=== PATIENT | female | born 1975 | race Hispanic/Latino ===

== ENCOUNTER 2017-03-06 15:13 | Outpatient (CLI) | payer BC ==
--- NOTE | 2017-03-06 17:09 | MMO ---
BILATERAL SCREENING MAMMOGRAMS: DATE: 03/06/2017 COMPARISON: Prior exam of 2015. This patient's mammogram was interpreted with the assistance of computer-aided detection. FINDINGS: Scattered fibroglandular densities. No mass or distortion. No suspicious calcification. No evidenc e of interval change. IMPRESSION: BI-RADS 1: Negative. Recommend one year follow-up. POS: JANA
== END 2017-03-06 15:14 | disposition home or self-care (01) ==
LOC: MAMMO 15:13
PROVIDERS: ATTEND Family Medicine
DX: Z12.31 Encounter for screening mammogram for malignant neoplasm of breast (principal)
CPT/HCPCS: 77067; G0202

== ENCOUNTER 2017-07-13 08:59 | Outpatient (CLI) | payer BC ==
--- NOTE | 2017-07-13 11:13 | ULT ---
ABDOMINAL ULTRASOUND: Date: 07/13/17 HISTORY: Elevated transaminase. COMPARISON: None. TECHNIQUE: Utilizing a multihertz transducer, sonographic imaging of the abdomen is performed in the longitudina l and transverse plane. FINDINGS: Pancreas is obscured by bowel gas. Hepatic parenchyma has increased echogenicity which may be due to hepatic steatosis or hepatocellular disease. Limited evaluation for hepatic masses and intrahepatic d ilatation. Right hepatic lobe measures 17.21 cm. Main portal vein is patent. Appropriate direction of flow. Within the lumen of the gallbladder. There is echogenic material with shadowing suggesting gallbladde r completely filled with stones. Sludge may also be present. Gallbladder wall is not thickened. No si gnificant pericholecystic fluid. District [employer] does not comment on the presence or absence of Patel's sign. Common bile duct diameter is 0.6 cm. Right kidney has a normal cortical echotexture. No hydronephrosis. Right kidney measures 4.5 x 5.3 x 11.7 cm. IMPRESSION: 1. Increased echogenicity of liver. Hepatomegaly. Correlate for hepatic steatosis versus hepatocellu lar disease. If there is concern for hepatic masses, consider dedicated liver mass protocol CT. 2. Sonographic evidence of cholelithiasis without obvious evidence of cholecystitis. There does appe ar to be a significant amount of gallstones present. If there is concern, consider HIDA scan. 3. Common bile duct diameter 0.6 cm, which is near the upper limits of normal. If there is concern f or choledocholithiasis, consider ERCP or MRCP. Note, if MRCP is performed, the liver can also be asse ssed with an abdomen MRI. POS: JANA
== END 2017-07-13 09:00 | disposition home or self-care (01) ==
LOC: SCSULT 08:59
PROVIDERS: ATTEND Family Medicine
DX: R74.0 Nonspecific elevation of levels of transaminase and lactic acid dehydrogenase [LDH] (principal); R16.0 Hepatomegaly, not elsewhere classified; R93.3 Abnormal findings on diagnostic imaging of other parts of digestive tract; K80.20 Calculus of gallbladder without cholecystitis without obstruction
CPT/HCPCS: 76700; 76705

== ENCOUNTER 2017-07-19 11:45 | Outpatient (CLI) | payer BC ==
--- NOTE | 2017-07-21 09:02 | EKG ---
Test Reason : Blood Pressure : / mmHG Vent. Rate : 067 BPM Atrial Rate : 067 BPM P-R Int : 172 ms QRS Dur : 090 ms QT Int : 410 ms P-R-T Axes : 054 054 046 degrees QTc Int : 433 ms Normal sinus rhythm Nonspecific T wave abnormality Abnormal ECG No previous ECGs available Confirmed by VAMSI PADILLA ([id number]) on 07/21/2017 9:01:33 AM Referred By: JOSETTE Confirmed By:VAMSI PADILLA
== END 2017-07-19 11:46 | disposition home or self-care (01) ==
LOC: LABBT 11:45
PROVIDERS: ATTEND Specialist
DX: Z01.812 Encounter for preprocedural laboratory examination (principal); K80.12 Calculus of gallbladder with acute and chronic cholecystitis without obstruction
CPT/HCPCS: 93005; 93010

== ENCOUNTER 2017-07-24 07:09 | Day surgery (SDC) | payer BC ==
--- NOTE | 2017-07-20 00:10 | HP ---
HISTORY OF PRESENT ILLNESS: Ms. Camelia López is a 41-year-old female referred by Dr. Red Staton fo r gallstones. Abdominal ultrasound 07/13/2017 reveals multiple gallstones, fatty liver, normal bile duct caliber 6 mm. On 07/01/2017, CBC, comprehensive metabolic profile, lipase, vitamin levels at [facility] are normal. Screening colonoscopy on 07/12/2016, Dr. Dolan. Normal colonoscopy w ith diminutive polyp, otherwise normal. 0, para 0. ALLERGIES: None. TOBACCO: None. ALCOHOL: None. PAST SURGICAL HISTORY: Total abdominal hysterectomy, salpingo-oophorectomy for endometriosis. PAST MEDICAL HISTORY: Hypertension, history of endometriosis, depression. REVIEW OF SYSTEMS: Ten point noncontributory. PHYSICAL EXAMINATION: VITAL SIGNS: 137/89, 78, 99 degrees, 203 pounds, 64 inches. HEENT: Unremarkable. LUNGS: Clear to auscultation. CARDIAC: Regular rate and rhythm. ABDOMEN: Soft, mild tenderness in the epigastrium and right upper quadrant. No guarding, rebound. EXTREMITIES: Unremarkable. MEDICATIONS: Please note, sertraline 100 mg a day. Triple antibiotic therapy for H. pylori positive completing therapy, lisinopril/hydrochlorothiazide 10/12.5 mg a day. ASSESSMENT AND PLAN: 1. Cholecystitis, cholelithiasis, normal bile duct caliber. Recommend laparoscopic video cholecyste ctomy. Risk of infection, bleeding, visceral and biliary injury discussed. She consents. 2. H. pylori, undergoing treatment. 3. History of hysterectomy.
[2017-07-24 08:15] LABS: #Eosinphils 0.2 thou/uL (0.0-0.7); #Lymphocytes 1.3 thou/uL (1.20-3.40); #Monocytes 0.4 thou/uL (0.11-0.59); #Neutrophils 4.7 thou/uL (1.40-6.50); %Basophils 0.2 % (0.0-1.0); %Eosinophils 2.3 % (0.0-10.0); %Lymphocytes 19.9 % (21.0-51.0); %Monocytes 5.7 % (0.0-10.0); %Neutrophils 71.8 % (42.0-75.0); Hemoglobin 14.7 g/dL (12.0-16.0); Mean Corpuscular HGB CONC 34.7 g/dL (32.0-36.0); Mean Corpuscular Hemoglobin 31.9 pg (27.0-31.0); Mean Corpuscular Volume 92.1 fl (81.0-99.0); Mean Platelet Volume 7.8 fL (7.4-10.4); Platelet Count 224 thou/uL (130-400); Red Blood Cell (RBC) Count 4.59 mill/uL (4.20-5.40); White Blood Cell (WBC) Count 6.5 thou/uL (4.8-10.8)
[2017-07-24 08:36] LABS: ALT (SGPT) 847 U/L (8-55); AST (SGOT) 350 U/L (5-34); Albumin 4.4 g/dL (3.5-5.0); Alkaline Phosphatase 179 U/L (40-150); Anion Gap 16 mmol/L (10-20); BUN (Urea Nitrogen) 15 mg/dL (7.0-18.7); Bilirubin, Total 0.6 mg/dL (0.2-1.2); Calc. Creatinine Clearance 0 mL/min (70-130); Calcium 9.8 mg/dL (7.8-10.44); Carbon Dioxide 22 mmol/L (22-29); Chloride 104 mmol/L (98-107); Estimated GFR-MDRD 82; Globulin 3.1 g/dL (2.4-3.5); Glucose 145 mg/dL (70-105); Lipase 46 U/L (8-78); Potassium 3.6 mmol/L (3.5-5.1); Protein, Total 7.5 g/dL (6.0-8.3); Sodium 138 mmol/L (136-145)
[2017-07-24 10:34] LABS: Bilirubin Negative (Negative); Blood, Urine Moderate (Negative); Clarity CLOUDY (Clear); Glucose, Urine (Dipstick) Negative (Negative); Leukocyte Negative (Negative); Nitrite Negative (Negative); Protein, Urine (Dipstick) Trace mg/dL (Neg-Trace); Specific Gravity, Urine 1.017 (1.002-1.036)
[2017-07-24 10:36] LABS: Bacteria/HPF None Seen HPF (None Seen); Hyaline Casts/LPF 7-10 HYALINE CAST LPF (0-3 Hyaline); Pathc Cast-AUWi Flag 2.47 (0-2.49); RBC/HPF 21-50 HPF (0-3); Squamous Epithelial 21-50 HPF (0-3)
[2017-07-24 10:45] LABS: Renal Epithelial None Seen HPF (0-3); Transitional Epithelial NONE SEEN HPF (0-3)
--- NOTE | 2017-07-24 11:36 | CT ---
ABDOMEN AND PELVIC CT SCAN WITH IV CONTRAST: History: 41-year-old female with history of left sided abdominal pain and flank pain. History of gallstones. FINDINGS: The lung bases are clear. Marked heterogeneous fatty changes noted throughout the liver with some fat ty sparring adjacent to the gallbladder. There is some minimal heterogeneous attenuation within the g allbladder region concerning for multiple gallstones but without evidence of overt gallbladder wall t hickening or pericholecystic abnormal fat stranding. The pancreas, spleen, and adrenal glands are unr emarkable. No evidence for renal calculus or overt obstruction. Normal appearing appendix. Approxi mately 3.4 cm diameter left ovarian cyst which is probably a complicated cyst given the slightly high er attenuation. It may well be a hemorrhagic cyst. No evidence of bowel obstruction. No abscess, yandel opathy, or abnormal fluid collection. IMPRESSION: Probable complicated left ovarian cyst of 3.4 cm. Fatty changes of the liver with some fatty sparring . Some heterogeneous attenuation within the gallbladder which certainly could be consistent with prev iously diagnosed gallstones. No evidence for other significant acute process. POS: JANA
[2017-07-24] MEDS ORDERED: Bupivacaine HCl 0.5%/Epinephrine 1:200,000/PF 30 ml Vial ONE (14:50)
[2017-07-24] MEDS ORDERED: Midazolam HCl 2 mg/2 ml Vial ONE (15:02)
[2017-07-24] MEDS ORDERED: Fentanyl 100 MCG/2 ML VIAL ONE ×2 (15:02→16:34)
[2017-07-24] MEDS ORDERED: Iopamidol 20 ML ONE (15:22)
[2017-07-24] MEDS ORDERED: Iothalamate Meglumine 60% 50 ML VIAL FS ONE (15:22)
[2017-07-24] MEDS ORDERED: SUGAMMADEX SODIUM 200 MG/2 ML VIAL ONE (16:10)
[2017-07-24] MEDS ORDERED: Labetalol HCl 100 MG/20 ML VIAL ONE (16:34)
[2017-07-24] MEDS ORDERED: Lidocaine 1% PF 5 ML VIAL ONE (16:40)
[2017-07-24] MEDS ORDERED: PROPOFOL 200 MG/20 ML VIAL ONE (16:40)
[2017-07-24] MEDS ORDERED: HYDROcodone/Acetaminophen 5/325 mg Tablet PO PRN ×2 (16:49)
[2017-07-24] MEDS ORDERED: Ondansetron HCl/PF 4 MG/2 ML Vial IVP PRN (16:49)
[2017-07-24] MEDS ORDERED: Promethazine HCl 25 MG/ML VIAL SLOW IVP PRN (16:49)
--- NOTE | 2017-07-24 17:47 | OP ---
DATE OF PROCEDURE: 07/24/2017 PREOPERATIVE DIAGNOSES: Chronic cholecystitis and cholelithiasis. Complex left ovarian cyst seen on CAT scan in the ER this morning. POSTOPERATIVE DIAGNOSES: Chronic cholecystitis and cholelithiasis. Complex left ovarian cyst seen o n CAT scan in the ER this morning.. PROCEDURE: Laparoscopic video cholecystectomy, normal cholangiograms (elevated liver function tests, normal bilirubin). SURGEON: Dr. Danny Jacobo. ANESTHESIA: General. Local 0.5% Marcaine with epinephrine. Note patient scheduled for surgery toda y, presented to the emergency room with left flank pain, found on urinalysis to have microhematuria, thought to have possibly renal stone due to left flank pain and lower left abdominal pain, and a CAT scan of the abdomen and pelvis, stone protocol, revealed normal urinary tracts with complex left ovar tenisha cyst. She has had a prior hysterectomy, right salpingo-oophorectomy. Patient was brought over t o preoperative holding as scheduled for a laparoscopic cholecystectomy. PROCEDURE IN DETAIL: The patient was taken to the operating room where under general anesthesia, abd omen was clipped of hair, prepared with ChloraPrep, draped in routine fashion. Local anesthetic infi ltrated into skin and subcutaneous tissue about the operative sites. Infraumbilical incision made an d pneumoperitoneum to 15 mmHg obtained with the Veress needle, replacing with a 5 port and video lapa roscope inserted. Right subcostal incision made in subxiphoid area and an 11 mm port placed right at the lateral subcostal incision made mid clavicular, axillary lines, and 5 ports placed. Liver appea red to be normal. Gallbladder was full of stones, otherwise normal. Fundus of gallbladder grasped a nd reflected cephalad. Infundibulum grasped and reflected laterally. Cystic artery and duct dissect ed free. Critical view obtained. Cystic artery double clipped proximally. Cystic duct singly clipp ed on the gallbladder side. An opening made in the cystic duct, cholangiocath inserted, and cholangi ogram was obtained using fluoroscopy revealing free flow of contrast into the duodenum without fillin g defects in the common hepatic, common bile, left and right hepatic ducts. Cholangiocath removed. Cystic duct stump doubly clipped and cystic artery and duct divided and gallbladder dissected free fr om the liver bed obtaining good hemostasis prior to division of final peritoneal attachments. Gallbl adder multiple stones removed and submitted to Pathology. Good hemostasis ensured as pneumoperitoneu m reduced after pelvis surged and I could not see the left adnexa due to some adhesions, but there we re no gross masses. Irrigant and pneumoperitoneum evacuated. All instruments removed and all skin i ncisions were approximated with interrupted subdermal 4-0 Monocryl and DermaGlue applied.
[2017-07-24] MEDS ORDERED: Promethazine HCl 25 MG/ML VIAL ONE (17:57)
--- NOTE | 2017-07-24 17:58 | RAD ---
INTRAOPERATIVE CHOLANGIOGRAM: 07/24/17 HISTORY: 41-year-old female with gallstones and cholelithiasis. Single portable fluoroscopic spot film is presented for interpretation. There is contrast which has b een injected through the cystic duct remnant into common bile duct. Minimal reflux into the pancreati c duct. There is emptying into the duodenum. Within the distal common duct/ampullary region, there is what appears to be a somewhat bilobed potential filling defect. This could conceivably represent low culus or less likely air bubble or blood clot or other filling defect. IMPRESSION: Small irregular, somewhat bilobed shaped filling defect in the distal common bile duct. This could be artifactual, an air bubble, although the possibility of small ductal stone or blood clot or other fi lling defect could potentially have this appearance. Code T POS: JANA
== END 2017-07-24 19:46 | disposition home or self-care (01) ==
LOC: ERS 07:09 → SDC 13:15
PROVIDERS: ATTEND Specialist
PROC: 0FT44ZZ Resection of Gallbladder, Percutaneous Endoscopic Approach (ICD-10-PCS; principal; 2017-07-24)
PROC: BF03YZZ Plain Radiography of Gallbladder and Bile Ducts using Other Contrast (ICD-10-PCS; principal; 2017-07-24)
DX: K80.10 Calculus of gallbladder with chronic cholecystitis without obstruction (principal); I10 Essential (primary) hypertension; F32.9 Major depressive disorder, single episode, unspecified; B96.81 Helicobacter pylori [H. pylori] as the cause of diseases classified elsewhere; Z79.899 Other long term (current) drug therapy; Z91.048 Other nonmedicinal substance allergy status
CPT/HCPCS: 47532; 74176; 80053; 81003; 81015; 83690; 85025; 88304; 94760; 96374; J0670; J1610; J2001; J2250; J2550; J2704; J3010; Q9961